=== PATIENT | female | born 1985 | race African-American/Black ===

== ENCOUNTER 2018-01-31 17:45 | Inpatient (IN) | payer OTHER ==
[2018-01-31] MEDS ORDERED: SODIUM PHOSPHATE/NA BIPHOS 133 ML ENEMA PR ONE (19:50)
[2018-01-31 20:09] VITALS: BMI 29.3
[2018-01-31] MEDS ORDERED: BUTORPHANOL TARTRATE 1 MG/ML VIAL IVPB ONE (20:11)
[2018-01-31] MEDS ORDERED: PROMETHAZINE HCL 25 MG/1 ML VIAL IVPUSH ONE (20:11)
[2018-01-31] MEDS ORDERED: DEXTROSE 5%-LACTATED RINGERS 1,000 ML IV SCH (20:15)
[2018-01-31] MEDS ORDERED: DINOPROSTONE 10 MG VAGINAL SUPPOSITORY VG ONE (21:00)
[2018-01-31 21:28] LABS: BASO % 0.4 % (0-2.0); EOS % 2.4 % (0-4.5); HEMATOCRIT 34.2 % (32.4-45.2); HEMOGLOBIN 11.8 GM/dL (10.7-15.3); LYMPH % 27.3 % (8-40); MCH 31.4 pg (25.7-33.7); MCHC 34.6 g/dl (32.0-36.0); MEAN CELL VOLUME 90.7 fl (80-96); MEAN PLT VOLUME 9.8 fl (7.5-11.1); MONO % 7.1 % (3.8-10.2); NEUT % 62.8 % (42.8-82.8); PLATELET COUNT 264 K/MM3 (134-434); RBC 3.77 M/mm3 (3.60-5.2); RDW 14.2 % (11.6-15.6); WHITE BLOOD COUNT 11.3 K/mm3 (4.0-10.0)
[2018-01-31 21:46] LABS: INR 0.98 (0.83-1.09); PROTHROMBIN TIME (PATIENT) 11.1 SEC (9.7-13.0)
[2018-01-31 21:49] LABS: ACTIVATED PTT 25.2 SECONDS (25.2-36.5)
[2018-01-31 22:10] LABS: ANION GAP 11 MMOL/L (8-16); BLOOD UREA NITROGEN 7 mg/dL (7-18); CHLORIDE 106 mmol/L (98-107); CO2 22 mmol/L (21-32); CREATININE 0.5 mg/dL (0.55-1.02); GLUCOSE,RANDOM 68 mg/dL (74-106); SODIUM 139 mmol/L (136-145)
--- NOTE | 2018-01-31 23:55 | HP ---
Past Medical History - Primary Care Physician PCP:: Coby Figueroa - Admission Chief Complaint: 32 yrs , 40.1 weeks by dtes & sharifo c.o leaking , gush at 11.00 AM 01/31/18. no c/o pain . pt was evaluated for leaking at 4.26 AM nitrazine was neg, FHR tracing cat-1 she was sent home History of Present Illness: pt is late registrant from Replaced By [facility] at 35 weeks gestation at [address] [place] [address] 12/13/17 panel AB Pos , Hbs g neg, Rpr nr, Hiv neg, Rubella immune, Varicella non immune , Sickle neg , Pap NILM HPV neg, gc/ct neg 1 hr Gtt 134 3 hr Gtt 12/19/17 90/168/155/92 01/02/18 Gc/Ct neg GBS neg, us was done once , report not seen , History Source: Patient, Medical Record - Past Medical History [employer]: No: Migraine, Seizure Cardiovascular: No: HTN, Murmur Pulmonary: No: Asthma Gastrointestinal: No: Constipation, Hemorrhoids Hepatobiliary: No: Hepatitis B Renal/: No: UTI ...: 4 ...Para: 0 ...Term: 0 ...: 0 ...Spon : 3 (2011( 12 wks), 2013 ( 16 wks) , 2015( 12 wks)) ...Induced : 0 ...Multiple Gestation: 0 ...LMP: 04/25/17 ... Weeks Gestation by Dates: 40.1 ...EDC by Dates: 01/30/18 ...EDC by Sono: 01/30/18 Heme/Onc: No: Anemia, Sickle Cell Trait Infectious Disease: No: AIDS, HIV, STD's, Tuberculosis Psych: Yes: Other (no mental illness) Endocrine: No: Diabetes Mellitus, Hyperthyroidism, Hypothyroidism - Past Surgical History Past Surgical History: Yes: None Hx Myomectomy: No Hx Transabdominal Cerclage: No - Smoking History Smoking history: Never smoked - Alcohol/Substance Use Hx Alcohol Use: No History of Substance Use: reports: None Home Medications - Allergies Allergies/Adverse Reactions: Allergies Allergy/AdvReac Type Severity Reaction Status Date / Time No Known Allergies Allergy Verified 01/31/18 05:11 - Home Medications Home Medications: Ambulatory Orders Ferrous Sulfate [Feosol] 325 mg PO DAILY 01/18/18 Vitamins (Sjr) - 1 tab PO DAILY 01/18/18 Physical Exam - Maternity Vital Signs: Vital Signs Temperature 98.4 F 01/31/18 19:57 Pulse Rate 102 H 01/31/18 19:57 Respiratory Rate 20 01/31/18 19:57 Blood Pressure 123/77 01/31/18 19:57 O2 Sat by Pulse Oximetry (%) Selected Entries 01/31/18 19:57 Weight 193 lb Constitutional: Yes: Well Nourished, No Distress, Anxious Eyes: Yes: WNL HENT: Yes: WNL, Normocephalic Neck: Yes: WNL Cardiovascular: Yes: WNL, Regular Rate and Rhythm Lungs: Clear to auscultation Breast(s): Yes: WNL - Abdominal Exam/OB Fundal Height: 38 Number of Fetuses: Single Presentation: Vertex Contractions: Yes Regularity: Regular Intensity: Moderate Monitor Mode: External Heart Rate (range): 150 Heart Rate Location: [facility] Category: I Accelerations: Uniform Decelerations: None - Vaginal Exam/OB Vaginal Bleediing: No Speculum Exam: Yes (gross leaking ) Dilatation (cm): close Effacement (%): unefface Amniotic Membrane Status: Ruptured Nitrazine Test: Positive Amniotic Fluid: Yes: Clear Presentation: Vertex/Position (exam at 8.30 PM 01/31/18) Station: -3 - Physical Exam Musculoskeletal: Yes: WNL Extremities: Yes: WNL. No: Calf Tenderness Edema: Yes Edema: LLE: 1+, RLE: 1+ Deep Tendon Reflex Grade: Normal +2 ...Motor Strength: WNL Psychiatric: Yes: WNL, Alert, Oriented - Labs Lab Results: CBC, BMP 01/31/18 20:30 01/31/18 20:30 Laboratory Tests 01/31/18 01/31/18 20:30 20:30 PT with INR 11.10 INR 0.98 PTT (Actin FS) 25.2 Blood Type AB POSITIVE Antibody Screen Negative Problem List - Problems (1) Post term over 40 weeks Code(s): O48.0 - POST-TERM (2) SROM (spontaneous rupture of membranes) Code(s): ELC0591 - Assessment/Plan 32 yrs , 40.1 weeks srom not in labor Plan cervidil induction( inserted at 830 PM 01/31/18 ) Prophylactic antibiotics ( ampicillin ) start after 18 hrs of SROM trial for vaginal delivery
[2018-02-01] MEDS ORDERED: PROMETHAZINE HCL 25 MG/1 ML VIAL ONE (02:51)
[2018-02-01] MEDS ORDERED: BUTORPHANOL TARTRATE 1 MG/ML VIAL ONE ×2 (02:51)
[2018-02-01] MEDS ORDERED: AMPICILLIN - 2 GM in SODIUM CHLORIDE 100 ML IVPB ONE (05:00)
[2018-02-01] MEDS ORDERED: AMPICILLIN SODIUM 2 GM VIAL ONE (05:06)
[2018-02-01] MEDS ORDERED: OXYTOCIN 30 UNITS in 0.9% NS 30 UNIT/500 ML INFUS.BAG IVPB ONE (09:24)
--- NOTE | 2018-02-01 09:31 | PN ---
Progress Note (short form) - Note Progress Note: s/p cervidil for 12 hrs cervidil removed at 8.30 AM cx 1 cm/60 %/vx -3 , MR / pt received Iv stadol 2mg + phenrgan at 3.05 AM becaus ec/o pain UC 7-10 min, FHR 140-150 BPM reactive cat-1 Selected Entries 02/01/18 08:00 Temperature 98.5 F Pulse Rate 89 Blood Pressure 125/77 Iv ampicillin prophylaxis started at 5.00 AM . IMP 40.2 weeks , srom 21 hrs not in active labor yet , s/p cervidil induction Plan may shower Pitocin Induction ct trial of labor Problem List - Problems (1) Post term over 40 weeks Code(s): O48.0 - POST-TERM (2) SROM (spontaneous rupture of membranes) Code(s): QUK1531 -
[2018-02-01] MEDS ORDERED: AMPICILLIN SODIUM 1 GM VIAL ONE ×2 (09:38→17:43)
[2018-02-01] MEDS ORDERED: OXYTOCIN 30 UNITS in 0.9% NS 30 UNIT/500 ML INFUS.BAG IVPB SCH (09:45)
[2018-02-01] MEDS: AMPICILLIN - 1 GM in SODIUM CHLORIDE 100 ML IVPB SCH ×3 (09:45→17:45)
[2018-02-01] MEDS: ELECTROLYTE-148 SOLN 1,000 ML IV SCH ×2 (11:10→16:10)
[2018-02-01] MEDS ORDERED: FENTANYL/BUPIVACAINE/NS/PF - PCEA - 50 ML DISP.SYRIN EP ONE ×2 (11:10→16:06)
[2018-02-01] MEDS ORDERED: BUPIVACAINE HCL/PF 0.25% (2.5MG/ML) 10 ML VIAL ONE (11:13)
--- NOTE | 2018-02-01 11:29 | PN ---
Progress Note, Labor Vaginal Exam #1 Labor Exam Date: 02/01/18 Labor Exam Time: 11:00 Heart Rate (range): 140-150 Dilatation: 3 Effacement (%): 80 Amniotic Membrane Status: Ruptured Presentation: Vertex/Position Station: -3 (-3/-2) Remarks: fhr cat-1 sometimes cat 2 is noted with uc . UC are still irregular 3-5 min . pitocin 2ml/hr ampicillin prophylaxis is continued pt unable to tolerate pain. plan epidural labor analgesia Selected Entries 02/01/18 02/01/18 08:00 09:00 Temperature 98.5 F Pulse Rate 89 98 H Blood Pressure 125/77 112/79 Vaginal Exam #2 Labor Exam Date: 02/01/18 Labor Exam Time: 15:40 Heart Rate (range): 150 Dilatation: 5 Effacement (%): 80 edema Amniotic Membrane Status: Ruptured Presentation: Vertex/Position Station: -1 Remarks: fhr cat-1 , sometimes variable decel with late component ( cat-2) uc q3-4 min bloody show pit 7ml/hr v/s BP 91/69, pulse 73/min Temp 98.9 ct iv Ampicillin prophylaxis fhr Vaginal Exam #3 Labor Exam Date: 02/01/18 Labor Exam Time: 17:40 Heart Rate (range): 160 Dilatation: 6 Effacement (%): 80 edema Amniotic Membrane Status: Ruptured Presentation: Vertex/Position Station: -1 (-1/0 caput large) Remarks: fhr cat-2 , down to 100bpm , variable decel mos to deep no change in fhr decel with change of patient position. she is still 6 cm cx is becoming edematous srom >30 hrs Temp 98.9, 120/69, pulse 100/min pt has received total 4 doses of Ampicillin IMP : 40.2 weeks , non reassuring FHR , prolonged srom . plan stop pitocin arrange for Primary LFTC/Section
[2018-02-01] MEDS ORDERED: FENTANYL/BUPIVACAINE/NS/PF - PCEA - 50 ML DISP.SYRIN EP SCH (11:45)
[2018-02-01] MEDS ORDERED: NALOXONE HCL 0.4 MG/ML VIAL IVPUSH PRN (11:51)
[2018-02-01] MEDS ORDERED: LIDOCAINE HCL 1% PRESERVATIVE FREE - 30ML VIAL ONE (12:44)
[2018-02-01] MEDS ORDERED: OXYTOCIN 20 UNITS in 0.9% NS 20 UNIT/1,000 ML INFUS.BAG IV ONE ×2 (12:44→21:51)
[2018-02-01] MEDS ORDERED: CITRIC ACID/SODIUM CITRATE 30 ML UNIT-DOSE CUP PO ONE (18:03)
[2018-02-01] MEDS ORDERED: LIDO 2%/EPI 1:200000 PRESRVFRE (20 ML SDVIAL) ONE (18:08)
[2018-02-01] MEDS ORDERED: morphine SULFATE/Preservative Free 0.5 MG/ML (1cc Syringe) ONE ×3 (18:11)
[2018-02-01] MEDS ORDERED: ePHEDrine SULFATE 50 MG/1 ML AMPULE ONE (18:36)
[2018-02-01] MEDS ORDERED: ceFAZolin SODIUM 1 GM VIAL ONE ×2 (18:39→18:53)
[2018-02-01] MEDS ORDERED: SODIUM CHLORIDE 0.9% P/F 10 ML VIAL IJ ONE ×2 (18:39→18:53)
[2018-02-01] MEDS ORDERED: KETOROLAC TROMETHAMINE 30 MG/1 ML VIAL ONE (18:48)
[2018-02-01] MEDS ORDERED: OXYTOCIN 10 UNITS/ML VIAL ONE (18:50)
[2018-02-01] MEDS ORDERED: MIDAZOLAM HCL 2 MG/2 ML SINGLE DOSE VIAL ONE (18:59)
[2018-02-01] MEDS ORDERED: METHYLERGONOVINE MALEATE 0.2 MG/1 ML AMP IM PRN (19:43)
[2018-02-01] MEDS ORDERED: IBUPROFEN 800 MG/8 ML IJ IVPB PRN (19:43)
[2018-02-01] MEDS ORDERED: OXYTOCIN 20 UNITS in 0.9% NS 20 UNIT/1,000 ML INFUS.BAG IV SCH (19:45)
[2018-02-01 19:49] LABS: VENOUS PC02 42.6 mmHg (38-52); VENOUS PH 7.35 (7.32-7.42); VENOUS PO2 28.1 mmHg (28-48)
[2018-02-01] MEDS ORDERED: ONDANSETRON 4 MG/2 ML VIAL IVPUSH PRN (19:53)
--- NOTE | 2018-02-01 20:12 | OP ---
Operative Note - Note: Operative Date: 02/01/18 Pre-Operative Diagnosis: 40.2 weeks, non reassuring FHR, prolonged SROM , failed induction Operation: Primary low flap transverse c/section Findings: TOB 6.50 PM , Baby Girl, 9/9, Wt 6'8" Ht 19.5", LOP , Cord around neckx1 tight Both tubes & ovaries normal mutiple subserosal & intramural 1 to2 cm fibroids noted in the corpus of uterus Post-Operative Diagnosis: Other (mutiple fibroid uterus) Surgeon: Coby Figueroa Power And Recovery Supervisor: Gary Ricks (ANGELA) Anesthesiologist/READINESS PARAPROFESSIONAL: Barron Mejía Anesthesia: Epidural Specimens Removed: cord blood segment for cord gas. cord blood. placenta Estimated Blood Loss (mls): 700 Drains, Volume Out (mls): 100 (farnaz color randle out put ) Fluid Volume Replaced (mls): 800 (iv ancef 2 gm prior to incision ) Operative Report Dictated: Yes
--- NOTE | 2018-02-01 20:29 | PN ---
Delivery - Delivery Section: Primary, Low Flap Transverse Type of Anesthesia: Epidural EBL (cc): 700 (100 ml foleyoutput farnaz color ) Delivery, Single - Stages of Labor Date 1st Stage Initiatied: 02/01/18 Time 1st Stage Initiated: 10:00 Date of Delivery: 02/01/18 Time of Delivery: 18:50 Date Placenta Delivered: 02/01/18 Time Placenta Delivered: 18:51 Placenta: Yes: Manual Removal, Uterine Exploration - Condition of Electric Container Tester/Director Call Present: Yes Name: Geri Augustine Gender: Female Weight: 6 lb 8 oz Position: Left, OP (cord around neckx1 tight) Total Hours ROM (Hrs/Mins): 31hr.51 min - 1 Minute Total Score: 9 5 Minutes Total Score: 9 - Feeding Plan Initial Plan: Exclusive throughout hospitalization Remarks - Remarks Remarks: Indication c/section 40.2 weeks, non reassuring FHR, prolonged SROM 32 yrs , 402 weeks presented with srom since 11.00AM on 01/31/18 late registrant from [facility] at [address] [place] [address] GBS pos , 4 doses Iv Ampicillin given . cervidil induction 12 hrs followed by pitocin induction started iv stadol 2 mg + phenrgan 25 mg followed by epidural labor analgesia was given . 2gm iv ancef intraop was given intraop course uneventful
[2018-02-02] MEDS ORDERED: OXYTOCIN 20 UNITS in 0.9% NS 20 UNIT/1,000 ML INFUS.BAG IV ONE ×2 (01:44→04:36)
[2018-02-02] MEDS: CEFAZOLIN 1 GM in DEXTROSE 5%-WATER - 50 ML IVPB SCH ×3 (02:00→17:21)
[2018-02-02] MEDS ORDERED: ceFAZolin SODIUM 1 GM VIAL ONE ×4 (02:27→17:18)
[2018-02-02 08:17] LABS: BASO % 0.2 % (0-2.0); EOS % 1.5 % (0-4.5); HEMATOCRIT 27.6 % (32.4-45.2); HEMOGLOBIN 9.4 GM/dL (10.7-15.3); MCH 30.9 pg (25.7-33.7); MEAN CELL VOLUME 90.7 fl (80-96); MEAN PLT VOLUME 9.2 fl (7.5-11.1); NEUT % 75.3 % (42.8-82.8); PLATELET COUNT 178 K/MM3 (134-434); RBC 3.04 M/mm3 (3.60-5.2); RDW 13.9 % (11.6-15.6); WHITE BLOOD COUNT 14.4 K/mm3 (4.0-10.0)
[2018-02-02] MEDS ORDERED: oxyCODONE HCL 5 MG TABLET PO PRN (10:00)
[2018-02-02] MEDS: FERROUS SO4 325 MG TABLET (FP) PO SCH ×2 (10:19→17:21)
[2018-02-02] MEDS: PRENATAL VITAMINS W/ FOLIC ACID TABLET (FP) PO SCH (10:20)
[2018-02-02] MEDS: ENOXAPARIN NA (PORCINE) 40 MG/0.4 ML DISP.SYRIN SQ SCH (10:20)
--- NOTE | 2018-02-02 10:29 | PN ---
Post Progress Note - Subjective Subjective: no c/o apin or itching Post Day: 1 Type of Delivery: Primary C/S Vital Signs: Vital Signs Temperature 98.1 F 02/02/18 06:00 Pulse Rate 95 H 02/02/18 06:00 Respiratory Rate 20 02/02/18 10:00 Blood Pressure 101/55 02/02/18 06:00 O2 Sat by Pulse Oximetry (%) 100 02/01/18 20:35 Breast Exam: Yes: Soft, Other (plans to Bf ). No: Engorged Uterus: Yes: Fundus Firm, Fundus below umbilicus, Non-tender Incision: Yes: Dressing dry and intact. No: Redness, Oozing Abdomen/GI: Yes: Abdomen soft (bs active ), Tolerating PO (clear liqiuds ). No : Abdominal Distention, Tender, Passing flatus Lochia: Yes: Rubra Lochia, amount: Moderate Extremities: Yes: Calves non-tender Perineum: Yes: Intact Activity: Other (not OOB yet , randle in vanessa draining , scd insitu) - Labs Labs: CBC WBC 14.4 K/mm3 (4.0-10.0) H 02/02/18 07:55 RBC 3.04 M/mm3 (3.60-5.2) L 02/02/18 07:55 Hgb 9.4 GM/dL (10.7-15.3) L 02/02/18 07:55 Hct 27.6 % (32.4-45.2) L D 02/02/18 07:55 MCV 90.7 fl (80-96) 02/02/18 07:55 MCH 30.9 pg (25.7-33.7) 02/02/18 07:55 MCHC 34.0 g/dl (32.0-36.0) 02/02/18 07:55 RDW 13.9 % (11.6-15.6) 02/02/18 07:55 Plt Count 178 K/MM3 (134-434) D 02/02/18 07:55 MPV 9.2 fl (7.5-11.1) 02/02/18 07:55 Absolute Neuts (auto) 10.8 K/mm3 (1.5-8.0) H 02/02/18 07:55 Neutrophils % 75.3 % (42.8-82.8) 02/02/18 07:55 Lymphocytes % 15.0 % (8-40) D 02/02/18 07:55 Monocytes % 8.0 % (3.8-10.2) 02/02/18 07:55 Eosinophils % 1.5 % (0-4.5) 02/02/18 07:55 Basophils % 0.2 % (0-2.0) 02/02/18 07:55 Nucleated RBC % 0 % (0-0) 02/02/18 07:55 Other Findings, Remarks: rs CTA output 600 ml + 320 ml Problem List - Problems (1) Post term over 40 weeks Code(s): O48.0 - POST-TERM (2) SROM (spontaneous rupture of membranes) Code(s): WDC9640 - (3) Non-reassuring electronic monitoring tracing Code(s): O76 - ABNLT IN HEART RATE AND RHYTHM COMP LABOR AND DELIVERY (4) Prolonged rupture of membranes, greater than 24 hours, delivered Code(s): O42.10 - VINCENT ROM, ONSET LABOR > 24 HR FOL RUPT, UNSP WEEKS OF GEST (5) delivery, delivered, current hospitalization Code(s): O82 - ENCOUNTER FOR DELIVERY WITHOUT INDICATION (6) Encounter for visit Code(s): Z39.2 - ENCOUNTER FOR ROUTINE FOLLOW-UP (7) Anemia Code(s): D64.9 - ANEMIA, UNSPECIFIED (8) Anemia Code(s): D64.9 - ANEMIA, UNSPECIFIED Assessment/Plan post c/section day #[address] po care
--- NOTE | 2018-02-02 11:27 | PN ---
Progress Note, Physician Chief Complaint: s/p c section under spinal anesthesia post op day one History of Present Illness: duramorph for post op pain control - Current Medication List Current Medications: Active Medications Bisacodyl (Dulcolax Suppository -) 10 mg RC PRN PRN PRN Reason: CONSTIPATION Diphenhydramine HCl (Benadryl Injection -) 25 mg IVPUSH Q4H PRN PRN Reason: Pruritis Enoxaparin Sodium (Lovenox -) 40 mg SQ DAILY [facility] Last Admin: 02/02/18 10:20 Dose: 40 mg Ferrous Sulfate (Feosol -) 325 mg PO BIDWM [facility] Last Admin: 02/02/18 10:19 Dose: Not Given Cefazolin Sodium 1 gm/ (Dextrose) 50 mls @ 100 mls/hr IVPB Q8H-IV [facility] Stop: 02/03/18 01:59 Last Admin: 02/02/18 09:36 Dose: 100 mls/hr Oxytocin/Sodium Chloride (Normal Saline+20 Units Oxytocin -) 20 unit in 1,000 mls @ 125 mls/hr IV ASDIR [facility] Last Admin: 02/01/18 21:58 Dose: 125 mls/hr Ibuprofen (Motrin -) 600 mg PO Q4H PRN PRN Reason: PAIN LEVEL 1 - 3 Ibuprofen (Caldolor Injection -) 800 mg IVPB Q8H PRN PRN Reason: PAIN LEVEL 1-5 Methylergonovine Maleate (Methergine Injection -) 0.2 mg IM Q4H PRN PRN Reason: Excessive Bleeding (L&D) Ondansetron HCl (Zofran Injection) 4 mg IVPUSH Q4H PRN PRN Reason: NAUSEA Oxycodone HCl (Roxicodone -) 5 mg PO Q4H PRN PRN Reason: PAIN LEVEL 4 - 6 Oxycodone HCl (Roxicodone -) 10 mg PO Q4H PRN PRN Reason: PAIN LEVEL 7 - 10 Multivit/Folic Acid/Iron ( Vitamins (Sjr) -) 1 tab PO DAILY [facility] Last Admin: 02/02/18 10:20 Dose: Not Given Senna/Docusate Sodium (Pericolace -) 2 tablet PO HS PRN PRN Reason: CONSTIPATION Simethicone (Mylicon -) 80 mg PO Q4H PRN PRN Reason: GAS - Objective Vital Signs: Vital Signs Temperature 98.9 F 02/02/18 10:00 Pulse Rate 100 H 02/02/18 10:00 Respiratory Rate 20 02/02/18 10:57 Blood Pressure 114/74 02/02/18 10:00 O2 Sat by Pulse Oximetry (%) 100 02/01/18 20:35 Constitutional: Yes: Well Nourished Cardiovascular: Yes: WNL Respiratory: Yes: WNL Gastrointestinal: Yes: WNL Labs: CBC, BMP 02/02/18 07:55 01/31/18 20:30 INR, PTT INR 0.98 (0.83-1.09) 01/31/18 20:30 Assessment/Plan no adverse effect of anesthetic, pain controlled, no nausea. dept of anesthesia will sign off care at this time
--- NOTE | 2018-02-02 12:30 | OP ---
DATE OF OPERATION: 02/01/2018 PREOPERATIVE DIAGNOSES: A 40.2 weeks, nonreassuring heart, prolonged rupture of membranes, failed induction of labor. OPERATION DONE: Primary low-flap transverse section. POSTOPERATIVE DIAGNOSES: A 40.2 weeks, nonreassuring heart, prolonged rupture of membranes, failed induction of labor, and multiple fibroids in the uterus. SURGEON: Coby Figueroa MD PRODUCT SUPPORT ENGINEER SURGEON: ANGELA Alaniz ANESTHESIOLOGIST: Barron Mejía MD ANESTHESIA: Epidural. FINDINGS: This is a 32-year-old, 4, para 0-0-3-0, was 40.2 weeks. She presented with rupture of membranes and more than 30 hours. Cervidil induction for 12 hours, followed by Pitocin induction was started. She dilated up to 5-6 cm, and then, , cervix was getting edematous and she had recurrent moderate variable decelerations; hence, nonreassuring heart rate suspected , and also, she had rupture of membranes for 30 hours. She received IV ampicillin 4 doses for GBS prophylaxis after 18 hours of rupture of membranes. Postoperatively, baby girl, Apgars 9 and 9. Weight was 6 pounds 8 ounces. Cord around the neck tight. No fluid in the uterus and multiple fibroids in the uterus. PROCEDURE: Abdomen was shaved, prepped. Baer catheter was in situ. Patient had epidural which was reinforced. She was transferred to the operating room table , and abdomen was painted and draped in the usual manner. Level of anesthesia was checked, and then, Pfannenstiel incision was made. The skin, subcutaneous tissue, and anterior rectus sheath were incised transversely. Bleeding points were clamped and cauterized. Rectus muscle was from the rectus sheath. Parietal peritoneum was opened vertically. Lower flap of the peritoneum was incised transversely. Bladder was pushed down. Lower uterine segment was lacerated. There was no amniotic fluid, and the baby was delivered at 6:50 p.m. from LOP position. Cord around the neck was tight. It was loosened, and the rest of the body was delivered. Cord was clamped, and baby's oral and nasal suction was done. Dr. Augustine, transverse abdominal muscle surgeon, was present in the operating room. Apgars were 9 and 9, and the baby's weight 6 pounds 8 ounces. Cord blood was collected, and the cord segment was sent for the cord blood gas. Placenta was removed completely with the membranes. Uterine cavity was cleaned, and then, the uterine incision was closed in 2 layers. First layer was a continuous locking with a Biosyn 0 suture. Second layer was a continuous, intermittently locking, vertical mattress suture with a Biosyn 0 suture. Then, the bladder peritoneum also was closed with a Biosyn 0 suture. There were multiple fibroids between 1-2 to 3 cm in the corpus of the uterus. They were either subserosal and intramural. Hemostasis was checked. Both tubes and ovaries were normal, and the sponge, instrument, and needle count was correct. Irrigation was done. The closure of the abdomen was done. Parietal peritoneum was closed with a Vicryl 0 suture. Muscles were approximated together with Vicryl 0 interrupted sutures. Hemostasis was checked underneath the rectus sheath flaps and the rectus sheath was closed with Vicryl 0 continuous sutures and subcutaneous tissue was approximated with interrupted sutures with a Biosyn 0 suture. Then, the skin was approximated with rick. Blood clots were removed from the vagina. Pressure dressing was given. Estimated blood loss was 700 mL. Urine output intraoperatively was 100 mL. Total IV fluids intraoperatively were given, 800 mL, and she was given 2 g of IV Ancef prior to the incision. She tolerated the procedure well, and she was transferred to the recovery room in stable condition. Jocelyne [id number] MTDD
[2018-02-02] MEDS: SIMETHICONE 80 MG TAB.CHEW (FP) PO PRN ×2 (14:11→22:19)
[2018-02-02] MEDS ORDERED: DEXTROSE 5%-WATER - 50 ML IVPB ONE (17:18)
[2018-02-02] MEDS ORDERED: BISACODYL 10 MG SUPP.RECT RC PRN (19:55)
[2018-02-02] MEDS: SENNOSIDES/DOCUSATE COMBO (SENNA PLUS) TABLET (UD) PO PRN (22:19)
[2018-02-02] MEDS: oxyCODONE HCL 5 MG TABLET PO PRN (22:19)
[2018-02-02] MEDS: IBUPROFEN 600 MG TABLET (FP) PO PRN (22:20)
[2018-02-03] MEDS: IBUPROFEN 600 MG TABLET (FP) PO PRN ×3 (08:18→21:57)
[2018-02-03] MEDS: oxyCODONE HCL 5 MG TABLET PO PRN ×3 (08:18→21:58)
[2018-02-03] MEDS: SIMETHICONE 80 MG TAB.CHEW (FP) PO PRN ×3 (08:18→21:56)
--- NOTE | 2018-02-03 08:23 | PN ---
Progress Note (short form) - Note Progress Note: pod 2 s/p c/s , has low abdominal cramps CBC, BMP 02/02/18 07:55 01/31/18 20:30 Last Vital Signs Temp Pulse Resp BP Pulse Ox 99.4 F 96 H 20 111/74 100 02/02/18 22:22 02/02/18 20:46 02/02/18 20:46 02/02/18 20:46 02/01/18 20:35 abdomen soft, no distension, no cva incision dry, no bleeding no calf tenderness lochia mild plan ambulate cbc in am pain management
[2018-02-03] MEDS: FERROUS SO4 325 MG TABLET (FP) PO SCH ×2 (09:25→18:35)
[2018-02-03] MEDS ORDERED: DIPHTH,PERTUSS(ACELL),TET 0.5 ML DISP.SYRIN IM ONE (10:00)
[2018-02-03] MEDS: PRENATAL VITAMINS W/ FOLIC ACID TABLET (FP) PO SCH (10:18)
[2018-02-03] MEDS: ENOXAPARIN NA (PORCINE) 40 MG/0.4 ML DISP.SYRIN SQ SCH (10:18)
[2018-02-03] MEDS: SENNOSIDES/DOCUSATE COMBO (SENNA PLUS) TABLET (UD) PO PRN (21:57)
[2018-02-04 08:20] LABS: BASO % 0.4 % (0-2.0); EOS % 3.2 % (0-4.5); HEMATOCRIT 24.1 % (32.4-45.2); HEMOGLOBIN 8.4 GM/dL (10.7-15.3); LYMPH % 16.6 % (8-40); MCH 31.4 pg (25.7-33.7); MCHC 34.8 g/dl (32.0-36.0); MEAN CELL VOLUME 90.2 fl (80-96); MEAN PLT VOLUME 8.7 fl (7.5-11.1); MONO % 8.1 % (3.8-10.2); NEUT % 71.7 % (42.8-82.8); PLATELET COUNT 175 K/MM3 (134-434); RBC 2.67 M/mm3 (3.60-5.2); WHITE BLOOD COUNT 11.9 K/mm3 (4.0-10.0)
[2018-02-04] MEDS: FERROUS SO4 325 MG TABLET (FP) PO SCH ×2 (08:24→17:10)
--- NOTE | 2018-02-04 08:47 | PN ---
Post Progress Note - Subjective Subjective: no c/o apin c/o fatigue Post Day: 3 Type of Delivery: Primary C/S Vital Signs: Vital Signs Temperature 98.7 F 02/03/18 22:00 Pulse Rate 102 H 02/03/18 22:00 Respiratory Rate 20 02/03/18 22:00 Blood Pressure 128/67 02/03/18 22:00 O2 Sat by Pulse Oximetry (%) 100 02/01/18 20:35 Breast Exam: Yes: Soft. No: Engorged Uterus: Yes: Fundus Firm, Fundus below umbilicus, Non-tender Incision: Yes: Yair intact. No: Redness, Oozing Abdomen/GI: Yes: Abdomen soft, Passing flatus (bmdone ), Tolerating PO (diet ). No: Abdominal Distention, Tender Lochia: Yes: Rubra Lochia, amount: Moderate Extremities: Yes: Calves non-tender Perineum: Yes: Intact Activity: Ambulating - Labs Labs: CBC WBC 11.9 K/mm3 (4.0-10.0) H 02/04/18 07:45 RBC 2.67 M/mm3 (3.60-5.2) L 02/04/18 07:45 Hgb 8.4 GM/dL (10.7-15.3) L 02/04/18 07:45 Hct 24.1 % (32.4-45.2) L 02/04/18 07:45 MCV 90.2 fl (80-96) 02/04/18 07:45 MCH 31.4 pg (25.7-33.7) 02/04/18 07:45 MCHC 34.8 g/dl (32.0-36.0) 02/04/18 07:45 RDW 14.0 % (11.6-15.6) 02/04/18 07:45 Plt Count 175 K/MM3 (134-434) 02/04/18 07:45 MPV 8.7 fl (7.5-11.1) 02/04/18 07:45 Absolute Neuts (auto) 8.5 K/mm3 (1.5-8.0) H 02/04/18 07:45 Neutrophils % 71.7 % (42.8-82.8) 02/04/18 07:45 Lymphocytes % 16.6 % (8-40) 02/04/18 07:45 Monocytes % 8.1 % (3.8-10.2) 02/04/18 07:45 Eosinophils % 3.2 % (0-4.5) D 02/04/18 07:45 Basophils % 0.4 % (0-2.0) 02/04/18 07:45 Nucleated RBC % 0 % (0-0) 02/04/18 07:45 Problem List - Problems (1) Post term over 40 weeks Code(s): O48.0 - POST-TERM (2) SROM (spontaneous rupture of membranes) Code(s): VDL0942 - (3) Non-reassuring electronic monitoring tracing Code(s): O76 - ABNLT IN HEART RATE AND RHYTHM COMP LABOR AND DELIVERY (4) Prolonged rupture of membranes, greater than 24 hours, delivered Code(s): O42.10 - VINCENT ROM, ONSET LABOR > 24 HR FOL RUPT, UNSP WEEKS OF GEST (5) delivery, delivered, current hospitalization Code(s): O82 - ENCOUNTER FOR DELIVERY WITHOUT INDICATION (6) Encounter for visit Code(s): Z39.2 - ENCOUNTER FOR ROUTINE FOLLOW-UP (7) Anemia Code(s): D64.9 - ANEMIA, UNSPECIFIED (8) Anemia Code(s): D64.9 - ANEMIA, UNSPECIFIED Assessment/Plan stable. anemia counselled discharge tomorrow.
[2018-02-04] MEDS: PRENATAL VITAMINS W/ FOLIC ACID TABLET (FP) PO SCH (10:24)
[2018-02-04] MEDS: ENOXAPARIN NA (PORCINE) 40 MG/0.4 ML DISP.SYRIN SQ SCH (10:24)
[2018-02-04] MEDS: SIMETHICONE 80 MG TAB.CHEW (FP) PO PRN ×2 (10:25→21:03)
[2018-02-04] MEDS: oxyCODONE HCL 5 MG TABLET PO PRN ×2 (10:25→21:03)
[2018-02-04] MEDS: IBUPROFEN 600 MG TABLET (FP) PO PRN ×2 (10:25→21:03)
[2018-02-04] MEDS ORDERED: DIPHTH,PERTUSS(ACELL),TET 0.5 ML DISP.SYRIN IM ONE (12:00)
[2018-02-04] MEDS: SENNOSIDES/DOCUSATE COMBO (SENNA PLUS) TABLET (UD) PO PRN (21:09)
[2018-02-05 08:29] VITALS: BP 121/73; PULSE 91; TEMP 98.2
--- NOTE | 2018-02-05 09:00 | DS ---
Physical Exam-WELDING EQUIPMENT REPAIRER Vital Signs: Vital Signs Temperature 98.2 F 02/05/18 08:27 Pulse Rate 91 H 02/05/18 08:27 Respiratory Rate 20 02/05/18 08:27 Blood Pressure 121/73 02/05/18 08:27 O2 Sat by Pulse Oximetry (%) 100 02/01/18 20:35 Constitutional: Yes: Well Nourished, Obese, Pallor Eyes: Yes: WNL HENT: Yes: WNL Neck: Yes: WNL Cardiovascular: Yes: WNL Respiratory: Yes: WNL Gastrointestinal: Yes: WNL, Normal Bowel Sounds, Soft, Other (bm done). No: Distention Renal/: Yes: WNL, Other (voiding without difficulty). No: CVA Tenderness - Left, CVA Tenderness - Right ....Post : Yes: Uterus firm, Uterus non-tender, Moderate lochia rubra Breast(s): Yes: WNL (not engorged) Musculoskeletal: Yes: Other (BF) Extremities: Yes: WNL. No: Calf Tenderness Edema: LLE: 1+, RLE: 1+ Wound/Incision: Yes: Clean/Dry, Well Approximated, Steri Strips, Open to air, Yair Removed. No: Draining, Reddened, Bleeding, Excoriated Neurological: Yes: WNL, Alert, Oriented ...Motor Strength: WNL Psychiatric: Yes: WNL, Alert, Oriented Labs: CBC, BMP 02/04/18 07:45 01/31/18 20:30 Delivery - Delivery Section: Primary, Low Flap Transverse Type of Anesthesia: Epidural Episiotomy/Laceration: None EBL (cc): 700 (100 ml foleyoutput farnaz color ) Delivery, Single - Stages of Labor Date 1st Stage Initiatied: 02/01/18 Time 1st Stage Initiated: 10:00 Date of Delivery: 02/01/18 Time of Delivery: 18:50 Time Placenta Delivered: 18:51 Placenta: Yes: Manual Removal, Uterine Exploration - Condition of Infant Home Care Assistant/Career Orientation Teacher Present: Yes Name: Geri Augustine Infant Gender: Female Weight: 6 lb 8 oz Position: Left, OP (cord around neckx1 tight) Total Hours ROM (Hrs/Mins): 31hr.51 min - 1 Minute Total Score: 9 5 Minutes Total Score: 9 - [place] Feeding Plan Initial Plan: Exclusive throughout hospitalization Remarks - Remarks Remarks: Indication c/section 40.2 weeks, non reassuring FHR, prolonged SROM 32 yrs , 402 weeks presented with srom since 11.00AM on 01/31/18 late registrant from [facility] at [address] [place] [address] GBS pos , 4 doses Iv Ampicillin given . cervidil induction 12 hrs followed by pitocin induction started iv stadol 2 mg + phenrgan 25 mg followed by epidural labor analgesia was given . 2gm iv ancef intraop was given intraop course uneventful post op course uneventful. anemia counselled discharge today. Discharge Summary Reason For Visit: LABOR Current Active Problems Anemia (Acute) Anemia (Acute) delivery, delivered, current hospitalization (Acute) Encounter for visit (Acute) Non-reassuring electronic monitoring tracing (Acute) Post term over 40 weeks (Acute) Prolonged rupture of membranes, greater than 24 hours, delivered (Acute) SROM (spontaneous rupture of membranes) (Acute) Condition: Stable - Instructions Diet, Activity, Other Instructions: Post Instructions DIET: Continue good diet high in protein, calcium, and iron rich foods. Drink at least eight (8) glasses of water daily in addition to other fluids. ___ Regular diet MEDICATIONS: Continue vitamins and iron as previously directed. Motrin and Tylenol may be taken for minor discomfort. ACTIVITY: Mild to moderate exercise may be started in two (2) weeks. Take frequent rest periods. Resume normal activity after six (6) week check up. WOUND CARE OF OPERATIVE SITE: Continue use of perineal bottle until vaginal discharge stops. Keep area clean. Shower daily. Keep abdominal wound dry. Report any drainage or redness to physician. Tub baths, tampons and douches are not permitted for [address] Breast feeding & or Bottle feeding BREAST CARE: (For those that are not ): If engorgement occurs: Wear tight fitting bra. Take Tylenol or Motrin for pain. Apply cold packs (ice in bags to each breast ) FAMILY PLANNING: There are many control alternatives to pursue and they should be discussed at your first office visit. You may resume sexual activity after your six (6) week check up. (Remember, breast feeding is not a contraceptive) NEXT PHYSICIAN APPOINTMENT: Be certain to call for a one (1) week appointment, unless otherwise directed. Call Clinic or got to Emergency Dept if you have any of the following: Heavy vaginal bleeding Painful urination Leg pain Unusual odor noted to vaginal bleeding High fever Red streaking noted on breast call [facility] for appointment in 1 week for incision check and 6 weeks for check. [phone] Referrals: Coby Figueroa MD [Staff Physician] - Disposition: HOME - Home Medications Comprehensive Discharge Medication List: Ambulatory Orders Ferrous Sulfate [Feosol] 325 mg PO DAILY 01/18/18 Vitamins (Sjr) - 1 tab PO DAILY 01/18/18 Ferrous Sulfate [Feosol] 325 mg PO BIDWM #60 tab 02/04/18 Ibuprofen [Motrin -] 600 mg PO Q4H PRN #30 tablet 02/04/18 Vitamins (Sjr) - 1 tab PO DAILY #30 tablet 02/04/18
[2018-02-05] MEDS: FERROUS SO4 325 MG TABLET (FP) PO SCH (09:03)
[2018-02-05] MEDS: ENOXAPARIN NA (PORCINE) 40 MG/0.4 ML DISP.SYRIN SQ SCH (09:04)
[2018-02-05] MEDS: PRENATAL VITAMINS W/ FOLIC ACID TABLET (FP) PO SCH (09:04)
[2018-02-05] MEDS: SIMETHICONE 80 MG TAB.CHEW (FP) PO PRN (10:47)
[2018-02-05] MEDS: IBUPROFEN 600 MG TABLET (FP) PO PRN (10:47)
--- NOTE | 2018-02-07 16:00 | PATH ---
Surgical Pathology Report Patient Name: DANIELLE ZARATE Med. Rec. #: [id number] /Age/Gender: 1985 (Age: 32) / F Account: [id number] Location: [facility] OBS/FLORAL ASSISTANT Taken: 02/01/2018 Received: 02/02/2018 Reported: 02/07/2018 Physicians: Coby Figueroa M.D. Specimen(s) Received PLACENTA Clinical History , 40.2 weeks' gestation Nonreassuring heart rate tracing, > 31 hours ROM Final Diagnosis PLACENTA, SECTION: 456 G THIRD TRIMESTER PLACENTA WITH TRIVASCULAR UMBILICAL CORD AND MILD ACUTE CHORIOAMNIONITIS. Electronically Signed Danielle Espinoza M.D. Gross Description The specimen is received fresh labeled placenta and is a 456 gram, 14.5 x 13.5 x 3.3 cm. placenta with attached membranes and umbilical cord. The attached membranes are duncna, translucent with focal opacities and insert marginally. The umbilical cord measures 9 cm. in length and averages 0.9 cm. in diameter. The cord inserts eccentrically, 5 cm. to the nearest margin. No true knots or strictures are identified. Cut surface of the umbilical cord reveals 3 vessels. The surface is anne blue with moderate fibrin deposition and appropriate caliber vessels. The maternal surface is red-brown and intact. Sectioning reveals red-brown, spongy parenchyma. No lesions are identified. Environmental Lawyer sections are submitted in three cassettes as follows: 1- membrane rolls and umbilical cord; 2-3- full thickness sections of placenta. 02/03/2018 [facility]02/03/2018
== END 2018-02-05 12:40 | disposition home or self-care (01) | DRG 540 ==
LOC: JDEL 17:45 → JLDR 19:05 → J3W 02-02 12:06
PROVIDERS: ADMIT Obstetrics & Gynecology; ATTEND Obstetrics & Gynecology
PROC: 3E0P7VZ Introduction of Hormone into Female Reproductive, Via Natural or Artificial Opening (ICD-10-PCS; 2018-01-31)
PROC: 10D00Z1 Extraction of Products of Conception, Low, Open Approach (ICD-10-PCS; principal; 2018-02-01)
DX: O48.0 Post-term pregnancy (principal); O76 Abnormality in fetal heart rate and rhythm complicating labor and delivery; O61.0 Failed medical induction of labor; O69.1XX0 Labor and delivery complicated by cord around neck, with compression, not applicable or unspecified; O63.1 Prolonged second stage (of labor); O34.13 Maternal care for benign tumor of corpus uteri, third trimester; D25.1 Intramural leiomyoma of uterus; D25.2 Subserosal leiomyoma of uterus; O99.02 Anemia complicating childbirth; D64.9 Anemia, unspecified; Z3A.40 40 weeks gestation of pregnancy; Z37.0 Single live birth
CPT/HCPCS: 36415; 80048; 82803; 85025; 85610; 85730; 86593; 86850; 86900; 86901; 87389; 88307-TC; 90715